=== PATIENT | male | born 1990 | race African-American/Black ===

== ENCOUNTER 2017-03-17 02:14 | Emergency (ER) | payer OTHER ==
[2017-03-17] MEDS ORDERED: KETOROLAC TROMETHAMINE 30 MG/ML VIAL IV STA (02:19)
[2017-03-17 02:20] VITALS: TEMP 36.7
[2017-03-17] MEDS ORDERED: DEXAMETHASONE SOD INJ 10 MG/ML VIAL IV ONE (02:30)
[2017-03-17 02:37] LABS: BASO % 0.2 %; BASO ABS # 0.01 K/uL (0-0.2); COMPLETE YES; EOS % 4.7 %; LYMPH % 37.1 %; LYMPH ABS # 2.12 K/uL (1.2-3.4); MEAN CELL VOLUME 84.4 fL (80-100); MEAN CORPUSCULAR HGB CONC 35.5 g/dl (32-36); MEAN PLATELET VOLUME 8.7 fL (7.4-10.4); PLATELET COUNT 198 K/uL (130-400); RED BLOOD COUNT 5.57 M/uL (4.7-6.1); WHITE BLOOD COUNT 5.72 K/uL (4.8-10.8)
[2017-03-17 03:28] LABS: BLOOD UREA NITROGEN 9 mg/dl (7-18); BUN/CREATININE RATIO 7.9 (10-20); CALCIUM 9.5 mg/dl (8.5-10.1); CARBON DIOXIDE 29 mmol/L (21-32); CHLORIDE 102 mmol/L (98-107); CREATININE 1.19 mg/dl (0.60-1.40); GLUCOSE 105 mg/dl (70-99); POTASSIUM 3.4 mmol/L (3.5-5.1); SODIUM 139 mmol/L (136-145)
[2017-03-17] MEDS ORDERED: AMOX875T PO (03:44)
[2017-03-17] MEDS ORDERED: AMOXICILLIN/CLAVULANATE TAB 875 MG TAB PO ONE (03:45)
[2017-03-17] MEDS ORDERED: ALBUTEROL HFA 8 GM INHALER INH ONE (03:45)
[2017-03-17 03:57] VITALS: BP 122/82; PULSE 78; O2SAT 99
--- NOTE | 2017-03-17 04:12 | EMERGENCY ROOM VISIT NOTE ---
History Report prepared by Zamzam: Cyndy Crane Under the Supervision of: Dr. Venice Patel D.O. 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 The patient presents to the ED by EMS. They state that the patient was having significant trouble breathing and had wheezing and stridor. He was given DuoNeb and albuterol after which the patient seemed to improve. He is having difficulty talking and has been communicating with EMS through writing. He told EMS that he has had a cough for 2 days and has been unable to talk for a couple hours. He has been having some blood in his sputum with coughing. He states that his throat is sore and he is having pain with swallowing. He has not had any throat problems before. He denies having any previous medical problems and is not on any medications. He does not have any known allergies. He is a [employer] student. 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 Review of Systems See HPI for pertinent positives & negatives. A total of 10 systems reviewed and were otherwise negative. Past Medical & Surgical Medical Problems: (1) No Known Active Medical Problems Family History No pertinent family history stated. Social History Smoking Status: Never Smoker Drug Use: none Occupation Status: [employer] student Current/Historical Medications Scheduled Amoxicillin & Pot Clavulanate (Augmentin 875-125 mg), 875 MG PO BID Allergies Coded Allergies: No Known Allergies (Unverified , 03/17/17) Physical Exam Vital Signs Date Time Temp Pulse Resp B/P (MAP) Pulse Ox O2 Delivery O2 Flow Rate FiO2 03/17/17 03:57 78 18 122/82 99 03/17/17 03:53 78 18 122/82 99 Room Air 03/17/17 02:23 83 03/17/17 02:20 100 Room Air 03/17/17 02:20 36.7 84 20 148/84 100 Room Air Physical Exam HEENT: Head - normocephalic and atraumatic Pupils are equal, round, and reactive to light. Extraocular eye muscles are intact, and sclera are anicteric. There is mild scleral injection. Nose - moist nasal mucosa without discharge. Mouth - moist buccal mucosa. Oropharynx is nonerythematous and there is no tonsillar exudate or edema noted. Neck: Supple; no JVD, nuchal rigidity, cervical lymphadenopathy. Heart: Regular rate and rhythm. There is a normal S1 and S2 with no murmurs, clicks, or gallops appreciated. Lungs: Clear to auscultation bilaterally with no wheezes, rales, or rhonchi. Abdomen: Soft, completely nontender, nondistended, with good bowel sounds. There are no palpable pulsatile masses or hepatosplenomegaly. There is no guarding, rigidity, or rebound noted. Extremities: No evidence of cyanosis, clubbing, or edema. There are easily palpable peripheral pulses. Skin: warm and dry with good turgor and no rashes. Medical Decision & Procedures ER Provider Diagnostic Interpretation: X-ray results as stated below per interpretation by me: Chest X-ray: Mild peribronchial cuffing. No obvious pulmonary infiltrate or consolidation. Laboratory Results 03/17/17 02:24 Red Blood Count 5.57, Mean Corpuscular Volume 84.4, Mean Corpuscular Hemoglobin 30.0, Mean Corpuscular Hemoglobin Concent 35.5, Mean Platelet Volume 8.7, Neutrophils (%) (Auto) 50.0, Lymphocytes (%) (Auto) 37.1, Monocytes (%) (Auto) 8.0, Eosinophils (%) (Auto) 4.7, Basophils (%) (Auto) 0.2, Neutrophils # (Auto) 2.86, Lymphocytes # (Auto) 2.12, Monocytes # (Auto) 0.46, Eosinophils # (Auto) 0.27, Basophils # (Auto) 0.01 03/17/17 02:24 Test 03/17/17 02:24 White Blood Count 5.72 K/uL (4.8-10.8) Red Blood Count 5.57 M/uL (4.7-6.1) Hemoglobin 16.7 g/dL (14.0-18.0) Hematocrit 47.0 % (42-52) Mean Corpuscular Volume 84.4 fL (80-100) Mean Corpuscular Hemoglobin 30.0 pg (25-34) Mean Corpuscular Hemoglobin Concent 35.5 g/dl (32-36) Platelet Count 198 K/uL (130-400) Mean Platelet Volume 8.7 fL (7.4-10.4) Neutrophils (%) (Auto) 50.0 % Lymphocytes (%) (Auto) 37.1 % Monocytes (%) (Auto) 8.0 % Eosinophils (%) (Auto) 4.7 % Basophils (%) (Auto) 0.2 % Neutrophils # (Auto) 2.86 K/uL (1.4-6.5) Lymphocytes # (Auto) 2.12 K/uL (1.2-3.4) Monocytes # (Auto) 0.46 K/uL (0.11-0.59) Eosinophils # (Auto) 0.27 K/uL (0-0.5) Basophils # (Auto) 0.01 K/uL (0-0.2) RDW Standard Deviation 36.0 fL (36.4-46.3) RDW Coefficient of Variation 11.7 % (11.5-14.5) Immature Granulocyte % (Auto) 0.0 % Immature Granulocyte # (Auto) 0.00 K/uL (0.00-0.02) Anion Gap 8.0 mmol/L (3-11) Estimated GFR () 97.8 Estimated GFR (Non- 84.4 BUN/Creatinine Ratio 7.9 (10-20) Calcium Level 9.5 mg/dl (8.5-10.1) Laboratory results per my review. Medications Administered Medications (Trade) Dose Ordered Sig/Jennifer Route Start Time Stop Time Status Last Admin Dose Admin Dexamethasone Sodium Phosphate (Decadron Inj) 10 mg NOW ONCE IV 03/17/17 02:30 03/17/17 02:31 DC 03/17/17 02:30 10 MG Ketorolac Tromethamine (Toradol Inj) 30 mg NOW STAT IV 03/17/17 02:19 03/17/17 02:21 DC 03/17/17 02:31 30 MG Albuterol (Ventolin Hfa Inhaler) 2 puffs NOW ONCE INH 03/17/17 03:45 03/17/17 03:46 DC 03/17/17 03:50 2 PUFFS Amoxicillin/ Clavulanate Potassium (Augmentin Tab) 875 mg NOW ONCE PO 03/17/17 03:45 03/17/17 03:46 DC 03/17/17 03:49 875 MG Procedure Medications: Toradol Inj 30 mg IV, Decadron Inj 10 mg IV, Augmentin Tab 875 mg PO, Albuterol 2 puffs INH. ED Course 0215: The patient was evaluated in room B2. A complete history and physical examination were performed. Nursing notes and previous electronic medical records were reviewed. IV lock was established and labs were drawn as above. 0219: Toradol Inj 30 mg IV. 0230: Decadron Inj 10 mg IV. 0317: I reevaluated the patient. He is feeling much better. He is able to talk now and states that he would like to go home as he has many assignments to complete. He reports he has been sick for 2 days now with a cold and coughing up blood. He states his neck and throat hurt from coughing. He will have a chest x-ray. 0338: Upon reevaluation, the patient is feeling better. I discussed findings and results with him. He verbalized agreement of the treatment plan. He was discharged home. 0345: Augmentin Tab 875 mg PO, Albuterol 2 puffs INH. Medical Decision The patient is a 27 year old male who presents to the ED with SOB. Differential diagnosis includes allergic reaction, anaphylaxis, acute viral illness, pharyngitis, tonsillitis. Labs: glucose 105, normal renal function, no leukocytosis, stable H&H This is a 27-year-old male patient who presents to the emergency department after a 2 day history of cough and cold symptoms with progressively worsening shortness of breath tonight. EMS explained that the patient was in moderate respiratory distress upon their evaluation and felt that he had stridor as well as wheezing. He did respond nicely to a DuoNeb treatment as well as a subsequent albuterol treatment. Upon my evaluation of the patient, he had no wheezing. He was complaining of a significant sore throat and inability to talk because the throat hurts so much. He was given Decadron and Toradol with relief of symptoms. The patient went on to tell me that he has had a productive cough of bloody sputum over the past couple of days. Chest x-ray was performed which showed moderate peribronchial cuffing but no obvious consolidation. I will place the patient on antibiotics and he will go home with a albuterol inhaler. Medication Reconcilliation Current Medication List: was personally reviewed by me Blood Pressure Screening Patient's blood pressure: Normal blood pressure Blood pressure disposition: Did not require urgent referral Impression Primary Impression: Bronchitis Additional Impression: Wheezing Scribe Attestation The scribe's documentation has been prepared under my direction and personally reviewed by me in its entirety. I confirm that the note above accurately reflects all work, treatment, procedures, and medical decision making performed by me. Departure Information Dispostion Home / Self-Care Prescriptions Amoxicillin & Pot Clavulanate (Augmentin 875-125 mg) 1 Tab Tab 875 MG PO BID, #14 TAB Prov: Venice Patel D.O. 03/17/17 Referrals [facility] Forms HOME CARE DOCUMENTATION FORM, IMPORTANT VISIT INFORMATION, WORK / SCHOOL INSTRUCTIONS Patient Instructions Bronchitis Acute, ED Wheezing, My [facility] Additional Instructions Rest. take ibuprofen for pain. augmentin twice a day for next 7 days Use inhaler - 2 puffs every 4-6 hours over next 3 days Return to the ER if symptoms worsen. Problem Qualifiers
--- NOTE | 2017-03-17 06:37 | DIAGNOSTIC IMAGING REPORT ---
CHEST 2 VIEWS ROUTINE CLINICAL HISTORY: hemoptysis SHORTNESS OF BREATH COMPARISON STUDY: No previous studies for comparison. FINDINGS: The cardiac and mediastinal contours are normal. There is no evidence of focal pulmonary consolidation. There is no evidence of failure. No pleural effusions are visualized.[ IMPRESSION: No active disease in the chest. Electronically signed by: Tristan Keys M.D. 03/17/2017 6:36 AM Dictated Date/Time: 03/17/2017 6:36 AM
== END 2017-03-17 03:57 | disposition home or self-care (01) ==
LOC: EDBD 02:14 → C.EDB 02:16
DX: J40 Bronchitis, not specified as acute or chronic (principal)

== ENCOUNTER 2017-04-24 16:50 | Inpatient (IN) | payer OTHER ==
[~2017-04-24] VITALS: Ht 172.7 cm; Wt 68.5 kg
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
[2017-04-24 17:36] LABS: BASO % 0.3 %; BASO ABS # 0.02 K/uL (0-0.2); COMPLETE YES; EOS % 5.7 %; HEMATOCRIT 48.8 % (42-52); IG% 0.2 %; LYMPH % 40.8 %; LYMPH ABS # 2.36 K/uL (1.2-3.4); MEAN CELL VOLUME 85.9 fL (80-100); MEAN CORPUSCULAR HEMOGLOBIN 30.3 pg (25-34); MEAN CORPUSCULAR HGB CONC 35.2 g/dl (32-36); MEAN PLATELET VOLUME 8.9 fL (7.4-10.4); MONO % 6.6 %; NEUT % 46.4 %; PLATELET COUNT 263 K/uL (130-400); RED BLOOD COUNT 5.68 M/uL (4.7-6.1); WHITE BLOOD COUNT 5.79 K/uL (4.8-10.8)
[2017-04-24 17:37] LABS: URINE APPEARANCE CLEAR (CLEAR); URINE BILIRUBIN NEG (NEG); URINE COLOR DK YELLOW; URINE NITRITE NEG (NEG); URINE PH >= 9.0 (4.5-7.5); URINE SPECIFIC GRAVITY 1.026 (1.000-1.030); UROBILINOGEN NEG (NEG)
[2017-04-24 17:44] LABS: MANUAL MICROSCOPIC REQUIRED? NO; REVIEW REQ? NO; SULFASALICYLIC ACID NEG (NEG)
[2017-04-24 17:54] LABS: BUN/CREATININE RATIO 7.8 (10-20); CALCIUM 9.3 mg/dl (8.5-10.1); CREATININE 1.17 mg/dl (0.60-1.40); POTASSIUM 3.7 mmol/L (3.5-5.1)
[2017-04-24 17:58] LABS: BENZODIAZEPINE, URINE NEG (NEG); COCAINE,URINE NEG (NEG); PHENCYCLIDINE, URINE NEG (NEG)
[2017-04-24 18:05] LABS: THYROID STIMULATING HORMONE 0.436 uIu/ml (0.300-4.500)
[2017-04-25] MEDS ORDERED: BISMUTH SUBSALICYLATE PER ML OMNICELL CHARGE PO PRN (00:30)
[2017-04-25] MEDS ORDERED: hydrOXYzine HCL 25 MG TAB PO PRN ×2 (00:30)
[2017-04-25] MEDS ORDERED: MAGNESIUM HYDROXIDE SUSP 30 ML UDC PO PRN (00:30)
[2017-04-25] MEDS ORDERED: NURSING VERBAL MED ORDER ONE (00:30)
[2017-04-25] MEDS ORDERED: ALUMINUM/MAGNESIUM SUSP 30 ML UDC PO PRN (00:30)
[2017-04-25] MEDS ORDERED: SODIUM CHLORIDE 0.65% NA SOLN 45 ML (OCEAN) PRN (00:30)
[2017-04-25] MEDS ORDERED: ACETAMINOPHEN 325 MG TAB PO PRN (00:30)
[2017-04-25 00:56] VITALS: O2SAT 98
[2017-04-25 01:27] VITALS: BP 119/59; PULSE 89; TEMP 36.6; Ht 172.7 cm; Wt 68.5 kg
[2017-04-25 07:09] VITALS: BP_SYST 114; BP_SYST 93; BP_DIAS 56; BP_DIAS 76; PULSE 55; TEMP 36.9
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
[2017-04-26 07:06] VITALS: BP_SYST 103; BP_SYST 99; BP_DIAS 63; BP_DIAS 68; PULSE 62; PULSE 77; TEMP 36.6
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
[2017-04-27 07:13] VITALS: BP_SYST 103; BP_SYST 115; BP_DIAS 63; BP_DIAS 67; PULSE 72; PULSE 81; TEMP 36.5
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
[2017-04-28 07:06] VITALS: BP_SYST 105; BP_SYST 108; BP_DIAS 65; PULSE 70; PULSE 89; TEMP 36.6
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
[2017-04-29 07:11] VITALS: BP_SYST 94; BP_SYST 96; BP_DIAS 57; BP_DIAS 59; PULSE 53; PULSE 88; TEMP 36.4
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
== END 2017-04-29 11:57 | disposition home or self-care (01) | DRG 881 ==
LOC: C.EDB 16:51 → C.MHU 04-25 00:15 → MERGE 04-25 00:15 → C.MHU 04-27 17:53
PROVIDERS: ADMIT Psychiatry & Neurology Child & Adolescent Psychiatry; ATTEND Psychiatry & Neurology Child & Adolescent Psychiatry
DX: F32.9 Major depressive disorder, single episode, unspecified (principal); R45.851 Suicidal ideations; Z91.410 Personal history of adult physical and sexual abuse